=== PATIENT | male | born 1960 | race Caucasian/White ===

== ENCOUNTER → 2021-06-22 | Day surgery (SDC) | payer OTHER ==
[~2021-06-22] VITALS: Ht 170.2 cm; Wt 122.5 kg
[~2021-06-22] MED LIST: ASPIRIN EC81 MG PO; ATORVASTATIN CA80 MG PO; BENAZEPRIL HCL20 MG PO; DICLOFENAC SODI75 MG PO; FOLIC ACID1 MG PO; IRON PO; LASIX20 MG PO; METFORMIN HCL500 MG PO; NEURONTIN300 MG PO; OXYGEN; PROTONIX 40MG T40 MG PO; RHEUMATREX2.5 MG PO; TRELEGY ELLIPT1 EACH INH; VENLAFAXINE H37.5 MG PO; VERAPAMIL ER120 M1 PO; VITAMIN D3125 MC1 PO
== END | disposition home or self-care (01) ==
LOC: FAS 07:21
DX: D12.8 Benign neoplasm of rectum (principal); K57.30 Diverticulosis of large intestine without perforation or abscess without bleeding; R93.3 Abnormal findings on diagnostic imaging of other parts of digestive tract; F17.210 Nicotine dependence, cigarettes, uncomplicated; I25.2 Old myocardial infarction; I10 Essential (primary) hypertension; E78.5 Hyperlipidemia, unspecified; J45.909 Unspecified asthma, uncomplicated; G47.30 Sleep apnea, unspecified; E11.9 Type 2 diabetes mellitus without complications; F32.A Depression, unspecified; Z79.84 Long term (current) use of oral hypoglycemic drugs; Z79.82 Long term (current) use of aspirin
CPT/HCPCS: 71045; J2250; J2704; J7120